=== PATIENT | female | born 1965 | race Caucasian/White ===

== ENCOUNTER → 2020-09-13 08:22 | Outpatient (CLI) | payer OTHER, SELFPAY ==
--- NOTE | ~2020-09-13 | MMUS_ITS ---
EXAMINATION: MM diagnostic new BI w judi, US breast LT limited HISTORY: Palpable lump of the lower-outer left breast. TECHNIQUE: Craniocaudal, mediolateral, and mediolateral oblique 3-D tomosynthesis images of the breas ts were performed and synthetic 2-D images were generated. CAD analysis was submitted and interpreted . High resolution limited left breast ultrasound was performed. COMPARISON: 01/27/2019, 12/31/2017, 10/04/2017, 12/31/2016 BREAST PARENCHYMAL COMPOSITION: There are scattered areas of fibroglandular density. FINDINGS: MAMMOGRAPHIC FINDINGS: There is no evidence of suspicious mass, calcification, or architectural distortion in either breast to suggest malignancy. There has been no suspicious interval change. No mammographic correlate is id entified for the reported palpable abnormality of the left breast. ULTRASOUND: There is a 2.6 x 1.0 cm oval, circumscribed, parallel, isoechoic mass at the 5:00 location 6 cm from the nipple corresponding to the palpable abnormality of concern with sonographic features characteris tic of a lipoma. No suspicious cystic or solid mass is identified. IMPRESSION: 1. Left breast lipoma corresponding to the palpable abnormality of concern without mammographic or so nographic evidence of malignancy. 2. Recommend routine screening mammography in one year. BI-RADS Category 2: Benign finding(s). Reviewed, dictated and finalized at location A. IMPRESSION: 1. Left breast lipoma corresponding to the palpable abnormality of concern with out mammographic or sonographic evidence of malignancy. 2. Recommend routine screening mammography in one year. BI-RADS Category 2: Benign finding(s).
== END ==
PROVIDERS: PCP Family Medicine; Visit Provider Family Medicine
DX: N63.20 Unspecified lump in the left breast, unspecified quadrant (principal)
CPT/HCPCS: 76642; 77062; 77066; G0279